=== PATIENT | male | born 1945 | race Caucasian/White ===

== ENCOUNTER 2017-01-26 08:05 | Emergency (ER) | payer OTHER ==
[~2017-01-26] VITALS: Ht 185.4 cm; Wt 72.1 kg
[~2017-01-26 08:05] MED LIST: APAP/HYDROCODON1 T13 PO; COL100 PO; HYDROCHLOROTHIA25 MG PO; NEU300 PO; NORTRIPTYLINE H25 MG PO; TERAZOSIN HCL10 MG PO; ZES10 PO
[2017-01-26 08:12] VITALS: BP 117/71
== END 2017-01-26 09:04 | disposition home or self-care (01) ==
LOC: ED 08:05
DX: K59.00 Constipation, unspecified (principal); Z88.0 Allergy status to penicillin

== ENCOUNTER 2017-06-05 04:12 | Inpatient (IN) | payer OTHER ==
[~2017-06-05] VITALS: Ht 185.4 cm; Wt 73.2 kg
[2017-06-05 04:20] VITALS: Ht 185.4 cm; Wt 73.2 kg
[2017-06-05 05:36] LABS: BASOPHIL % 0.4 % (0-2); PLATELET COUNT 222 x10^3mcL (130-400)
[2017-06-05 05:38] LABS: RED CELL DISTRIBUTION WIDTH 14.7 % (11.5-14.5)
[2017-06-05 05:43] LABS: CALCIUM 9.7 mg/dL (8.5-10.1); CARBON DIOXIDE 29.8 mmol/L (21-32); CHLORIDE SERUM 107 mmol/L (98-107); CREATININE SERUM 1.1 mg/dL (0.7-1.3); GLUCOSE SERUM 100 mg/dL (74-106); POTASSIUM SERUM 4.2 mmol/L (3.5-5.1); SODIUM SERUM 141 mmol/L (136-145)
[2017-06-05 05:48] LABS: ALKALINE PHOSPHATASE 72 U/L (46-116); ALT/SGPT 27 U/L (16-63); AST/SGOT 22 U/L (15-37); BILIRUBIN TOTAL 0.4 mg/dL (0.20-1.00); TOTAL PROTEIN, SERUM 6.3 g/dL (6.4-8.2)
[2017-06-05 05:50] LABS: ALBUMIN 3.3 g/dL (3.4-5.0)
[2017-06-05 05:50] LABS: AMPHETAMINE QUAL UR NONE DETECTED (NEG <=1000)
[2017-06-05] MEDS ORDERED: PROSCAR5 MG PO (12:01)
[2017-06-05] MEDS ORDERED: FLO4 PO (12:02)
[2017-06-05] MEDS ORDERED: FERROUS SULFAT325 M2 PO (12:02)
[2017-06-05] MEDS ORDERED: LASIX20 MG PO (12:02)
[2017-06-05] MEDS ORDERED: ASPIR LOW81 MG PO (12:03)
[2017-06-05 12:18] LABS: T3 TOTAL 1.18 ng/mL
[2017-06-05 12:44] LABS: PHOSPHOROUS 2.6 mg/dL (2.5-4.9)
[2017-06-05 12:56] LABS: FREE T4 1.02 ng/dL (0.76-1.46); FREE THYROXINE INDEX 2.1 ug/dL (1.4-4.5); T4(THYROXINE) 5.9 ug/dL (4.7-13.3)
[2017-06-05 13:14] LABS: CHOLESTEROL/HDL RATIO 1.9
[2017-06-05 13:34] VITALS: BP 155/63
[2017-06-05 18:31] VITALS: BP 133/65
[2017-06-05 19:28] VITALS: BP 133/65
[2017-06-05 20:03] LABS: UA SPECIFIC GRAVITY 1.015 (1.005-1.035); microscopic required? YES; urine erythrocyte TRACE (NEGATIVE)
== END 2017-06-05 21:05 | DRG 880 ==
LOC: ED 04:12 → DU 11:22
PROVIDERS: Emergency Medicine; Family Medicine
DX: F41.1 Generalized anxiety disorder (principal); G93.40 Encephalopathy, unspecified; E44.1 Mild protein-calorie malnutrition; R45.851 Suicidal ideations; G47.8 Other sleep disorders; N40.1 Benign prostatic hyperplasia with lower urinary tract symptoms; R35.0 Frequency of micturition; I10 Essential (primary) hypertension; G62.9 Polyneuropathy, unspecified; Z88.0 Allergy status to penicillin; Z79.82 Long term (current) use of aspirin; Z79.891 Long term (current) use of opiate analgesic; Z68.22 Body mass index [BMI] 22.0-22.9, adult
CPT/HCPCS: 83880; 84439; G0480; J7030; Q0092